=== PATIENT | female | born 1995 | race Two or more races ===

== ENCOUNTER 2024-12-26 16:52 | Emergency (ER) | payer MEDICAID, SELFPAY ==
[2024-12-26 16:59] VITALS: BP 103/68; PULSE 78; RESP 18; TEMP 37.4; O2SAT 98
--- NOTE | 2024-12-26 17:10 | EKG_ITS ---
[facility] Test Date: 2024-12-26 Pat Name: ELIZABETH DOMINGUEZ Department: Room: - Gender: Female [employer]: : [id number] Requested By: Solo Azul (SOLE) Order Number: [id number] Reading MD: Solo Azul (ESCALATOR ATTENDANT) Measurements Intervals [place] Rate: 76 P: 75 MD: 151 QRS: 33 QRSD: 81 T: 60 QT: 360 QTc: 407 Interpretive Statements SINUS RHYTHM No previous ECG available for comparison /[id number]
--- NOTE | 2024-12-26 17:11 | EDRME_ITS ---
Rapid Medical Screening Exam [facility] Arrival date/time: 12/26/24 16:52 29-year-old female presents to the emergency department today for complaints of generalized weakness headache, body aches, chest pain, cough, fatigue Chief Complaint: Headache Vital signs: Vital Signs Temperature 99.4 F 12/26/24 16:59 Pulse Rate 78 12/26/24 16:59 Respiratory Rate 18 12/26/24 16:59 Blood Pressure 103/68 12/26/24 16:59 Pulse Oximetry (%) 98 12/26/24 16:59 Oxygen Delivery Method Room Air 12/26/24 16:59
[2024-12-26 18:04] LABS: Collection Type, Urine Clean Catch; RBC,Urine 0 /hpf (0-3)
[2024-12-26 18:09] LABS: Basophils % (Auto) 0 % (0-2.5); Eosinophils # (Auto) 0.1 Thou/mm3 (0.0-0.5); Eosinophils % (Auto) 1 % (0-10); Hematocrit 35.9 % (36.0-46.0); Hemoglobin 12.5 g/dL (12.0-16.0); Immature Granulocytes % (Auto) 0 % (0-0); Immature Granulocytes Auto 0.02 Thou/mm3 (0.00-0.00); Lymphocytes # (Auto) 3.7 Thou/mm3 (1.0-4.8); Lymphocytes % (Auto) 38 % (10-50); Mean Corpuscular HGB Conc 34.8 g/dl (31.0-37.0); Mean Corpuscular Hemoglobin 31.4 pg (25.0-35.0); Mean Corpuscular Volume 90 fL (80-100); Monocytes # (Auto) 0.7 Thou/mm3 (0.0-0.8); Monocytes % (Auto) 7 % (0-12); Neutrophils # (Auto) 5.2 Thou/mm3 (1.8-7.7); Neutrophils % (Auto) 54 % (37-80); Nucleated Red Blood Cell % 0 /100 WBC (0); Platelet Count 345 Thou/mm3 (140-440); RDW Standard Deviation 39.8 fL (36.4-46.3); Red Blood Count 3.98 Miln/mm3 (4.00-5.20); White Blood Count 9.7 Thou/mm3 (3.6-11.0)
[2024-12-26 18:32] LABS: Amphetamine/Methamp Scrn,U Negative (Negative); Barbiturate Screen,Urine Negative (Negative); Benzodiazepines Screen,Urine Negative (Negative); Benzoylecgonine Screen, Ur Negative (Negative); Fentanyl Screen,Urine Negative (Negative); Opiate Screen,Urine Negative (Negative); THC Screen,Urine Negative (Negative)
[2024-12-26 18:34] LABS: Alanine Aminotransferase 11 U/L (10-49); Albumin, Serum 4.7 gm/dL (3.5-5.0); Albumin/Globulin Ratio 1.5 (1.2-2.2); Alkaline Phosphatase 45 U/L (46-116); Anion Gap 6 (7-16); Aspartate Amino Transferase 25 U/L (0-34); BUN/Creatinine Ratio 17 Ratio (12-20); Bilirubin,Total 0.4 mg/dL (0.3-1.2); Blood Urea Nitrogen 12 mg/dL (9-23); Calcium 9.1 mg/dL (8.3-10.6); Calcium (Corrected) 9.1 mg/dL (8.5-10.1); Carbon Dioxide 24.3 mMol/L (20.0-31.0); Chloride 103 mMol/L (98-107); Creatinine (Component) 0.7 mg/dL (0.6-1.3); Free T4 (Free Thyroxine) 1.04 ng/dL (0.89-1.76); Globulin 3.1 gm/dL (2.3-3.5); Glucose 80 mg/dL (74-106); Magnesium 1.9 mg/dL (1.6-2.6); Osmolality,Calculated 265 (275-295); Potassium 4.2 mMol/L (3.4-5.1); Sodium 133 mMol/L (136-145); Thyroid Stimulating Hormone 1.71 uIU/mL (0.55-4.78); Total Protein 7.8 gm/dL (5.7-8.2); Troponin I < 0.002 ng/mL (0.0-0.045); eGFR > 60 See Note
[2024-12-26 18:53] LABS: Bilirubin,Urine Negative (Negative); Blood,Urine Negative (Negative); Clarity,Urine Turbid (Clear/Hazy); Color,Urine Yellow (Lt Yel-Yel); Glucose, Urine Negative (Negative); Hyaline Casts,Urine 1 /hpf (0-1); Ketones,Urine Trace (Negative); Leukocyte Esterase,Urine Positive (Negative); Nitrite,Urine Negative (Negative); PH,Urine 6.5 (5.0-7.0); Protein,Urine 1+ (Neg - Trace); Specific Gravity,Urine 1.048 (1.001-1.035); Squamous Epithelial Cell,Urine 2 /hpf (0-5); Urobilinogen,Urine Negative mg/dL (0.0-1.0); WBC,Urine 2 /hpf (0-5)
[2024-12-26 18:54] LABS: HCG Qualitative,Urine Positive
--- NOTE | 2024-12-26 20:40 | PC.NURSE ---
made Tech aware she called for Pt in the lobby but Pt did not answer.
--- NOTE | 2024-12-26 21:01 | PC.NURSE ---
PT CALLED BACK FROM LOBBY NO ANSWER
--- NOTE | 2024-12-27 01:11 | PD.EDADDENDU ---
Attestation MD Attestation Patient left without being seen by a provider. I did not do history and physical exam on this patient because the patient was not here.
== END 2024-12-26 21:20 | disposition left against medical advice (07) ==
LOC: SERX 17:55
PROVIDERS: Nurse Practitioner Primary Care; Emergency Provider Emergency Medicine
DX: R53.1 Weakness (principal); R51.9 Headache, unspecified; Z53.29 Procedure and treatment not carried out because of patient's decision for other reasons; R07.9 Chest pain, unspecified; R05.9 Cough, unspecified; R53.83 Other fatigue
CPT/HCPCS: 36415; 80053; 80307; 81001; 81025; 83735; 84439; 84443; 84484; 85025; 93005; 99281